=== PATIENT | female | born 1980 | race Caucasian/White ===

== ENCOUNTER 2019-12-15 08:58 | Emergency (ER) | payer MEDICAID ==
[~2019-12-15] VITALS: Ht 160 cm; Wt 81.8 kg
[~2019-12-15 08:58] MED LIST: NOCURR
[2019-12-15 11:04] VITALS: BP 110/72
== END 2019-12-15 11:06 | disposition home or self-care (01) ==
LOC: EMS 09:00
DX: H10.31 Unspecified acute conjunctivitis, right eye (principal)

== ENCOUNTER 2023-02-02 07:57 | Emergency (ER) | payer MEDICAID ==
[~2023-02-02] VITALS: Ht 167.6 cm; Wt 77.7 kg
[2023-02-02] MEDS ORDERED: IBUP-1492 PO (10:29)
[2023-02-02 11:39] VITALS: BP 115/68
== END 2023-02-02 11:40 | disposition home or self-care (01) ==
LOC: EMS 07:59
DX: M25.521 Pain in right elbow (principal)
CPT/HCPCS: 99284; 73070-TC; 73090-TC; Z7502

== ENCOUNTER 2023-03-05 16:10 | Emergency (ER) | payer MEDICAID ==
[~2023-03-05] VITALS: Ht 162.6 cm; Wt 79.5 kg
[~2023-03-05 16:10] MED LIST changes: +IBUP-1492 PO
[2023-03-05] MEDS ORDERED: ACETAMINOPHEN 500 MG TABLET PO ONE (17:30)
[2023-03-05 18:00] VITALS: BP 138/76
== END 2023-03-05 18:09 | disposition home or self-care (01) ==
LOC: EMS 16:19
DX: S00.12XA Contusion of left eyelid and periocular area, initial encounter (principal); X58.XXXA Exposure to other specified factors, initial encounter; Y93.89 Activity, other specified; Y92.89 Other specified places as the place of occurrence of the external cause; Y99.8 Other external cause status
CPT/HCPCS: 99282; Z7502; Z7610

== ENCOUNTER 2025-06-12 03:15 | Emergency (ER) | payer MEDICAID, OTHER ==
[~2025-06-12] VITALS: Ht 157.5 cm; Wt 77.8 kg
[2025-06-12 03:36] VITALS: TEMP 97.8
[2025-06-12 04:45] LABS: PLATELET COUNT (AUTO) 304 K/uL (150-450); RED BLOOD CELL COUNT(AUTO) 4.53 MIL/uL (4.00-5.20); RED CELL DISTRIBUTION WIDTH 13.1 % (11.5-14.5); WHITE BLOOD COUNT (AUTO) 8.5 K/uL (4.5-11.0)
[2025-06-12 04:58] LABS: CALCIUM, TOTAL 8.9 mg/dL (8.8-10.5); CREATININE 0.65 mg/dL (0.60-1.30); GLOMERULAR FILTR. RATE CALC > 60 mL/min (>60); GLUCOSE,RANDOM 97 mg/dL (70-110); SODIUM SERUM 142 mmol/L (136-145); UREA NITROGEN, BLOOD 10 mg/dL (7-18)
[2025-06-12 05:51] VITALS: BP 127/68; PULSE 79; RESP 16; O2SAT 99
[2025-06-12] MEDS: MECLIZINE HCL 25 MG TABLET PO ONE (06:46)
[2025-06-12] MEDS: SODIUM CHLORIDE 0.9% 500 ML IV ONE (06:46)
[2025-06-12] MEDS: ONDANSETRON HCL 4 MG/2 ML VIAL IVP ONE (06:46)
[2025-06-12] MEDS ORDERED: MECL-302 PO (07:48)
[2025-06-12] MEDS ORDERED: ONDA-104 PO (07:48)
[2025-06-12] MEDS: OXYMETAZOLINE HCL 0.05% 15 ML NASAL SPRAY NASAL ONE (08:29)
== END 2025-06-12 08:31 | disposition home or self-care (01) ==
LOC: EMS 04:03
DX: R42 Dizziness and giddiness (principal); R11.0 Nausea
CPT/HCPCS: 99283; 96374; 96361; 80048; 84702; 85025; 36415; J2405; J7040